=== PATIENT | male | born 1955 | race Caucasian/White ===

== ENCOUNTER 2020-07-11 07:43 | Day surgery (SDC) | payer MEDICARE ==
--- NOTE | 2020-07-10 16:08 | HP ---
HISTORY AND PHYSICAL DATE OF SURGERY: 07/11/2020 Leonard Silva is a 65-year-old gentleman seen with progressive right shoulder pain. We discussed options for treatment. He elected to proceed with arthroscopy. Consent was obtained. Medical clearance was provided. PAST MEDICAL HISTORY: Hypertension, gastroesophageal reflux disease, vee-flsxprh-gcugsutlu diabetes, hyperlipidemia. PAST SURGICAL HISTORY: Carpal tunnel release, eye surgery, wrist surgery. DAILY MEDICATIONS: Albuterol, omeprazole, metoprolol, losartan, glimepiride, metformin, simvastatin. ALLERGIES: IODINE and PENICILLIN. SOCIAL HISTORY: Denies tobacco use. PHYSICAL EVALUATION OF THE RIGHT SHOULDER: Flexion is 150, abduction 140, external rotation is 40 with pain and weakness. Tenderness along the anterior lateral acromion and rotator cuff insertion site. Impingement sign is positive at 90. Drop-arm sign positive. Distal neurovascular exam intact. RIGHT SHOULDER RADIOGRAPHS: Revealed a type 2 anterior acromion, acromioclavicular joint osteoarthritis and cystic changes of the greater tuberosity. Right shoulder MRI revealed a partial rotator cuff tendon tear, partial long head biceps tendon tear, acromioclavicular joint osteoarthritis, impingement. IMPRESSION: 1. Right shoulder impingement with rotator cuff tear. 2. Right shoulder acromioclavicular joint osteoarthritis. 3. Right shoulder partial long head biceps tendon tear. 4. Hypertension. 5. Hyperlipidemia. 6. Bje-nxbadhb-kfbrttwry diabetes. PLAN: Right shoulder arthroscopy, subacromial decompression, arthroscopic rotator cuff repair, biceps tenotomy, Ajit procedure and debridement. MMODL / IJN: [id number] /
[2020-07-11] MEDS ORDERED: LACTATED RINGERS 1,000 ML IV ONE ×2 (08:56→10:41)
[2020-07-11 09:00] LABS: Glucose,Whole Blood 151 mg/dL (75-99)
[2020-07-11] MEDS ORDERED: ONDANSETRON 4 MG/2 ML VIAL ONE (09:01)
[2020-07-11] MEDS ORDERED: MIDAZOLAM 2 MG/2 ML VIAL IVP ONE (09:07)
[2020-07-11] MEDS ORDERED: ONDANSETRON 4 MG/2 ML VIAL IVP ONE (09:12)
[2020-07-11] MEDS ORDERED: DEXAMETHASONE SOD PHOSPHATE 10 MG/ML 1 ML VIAL IV ONE (09:13)
[2020-07-11] MEDS ORDERED: PHENYLEPHRINE-0.9% NACL SYG 1 MG/10 ML SYRINGE ONE (10:02)
[2020-07-11] MEDS ORDERED: SUCCINYLCHOLINE CHLORIDE 100 MG/5 ML SYR IV ONE (10:02)
[2020-07-11] MEDS ORDERED: ROPIVACAINE 5 MG/ML 30 ML VIAL ONE (10:02)
[2020-07-11] MEDS ORDERED: DEXAMETHASONE SOD PHOSPHATE 10 MG/ML 1 ML VIAL ONE (10:02)
[2020-07-11] MEDS ORDERED: fentaNYL (PF) 50 MCG/ML 2 ML AMP ONE (10:02)
[2020-07-11] MEDS ORDERED: MIDAZOLAM 2 MG/2 ML VIAL ONE (10:02)
[2020-07-11] MEDS ORDERED: LIDOCAINE 1% INJ 10MG/ML (20 ML MDV) ONE (10:02)
[2020-07-11] MEDS ORDERED: PROPOFOL 10 MG/ML 20 ML VIAL IV ONE (10:02)
[2020-07-11 11:20] VITALS: TEMP 97
--- NOTE | 2020-07-11 11:20 | P.OP ---
Date of Procedure: 07/11/20 Preoperative Diagnosis: Right shoulder impingement Postoperative Diagnosis: 1. Right shoulder impingement 2. Right shoulder acromioclavicular joint osteoarthritis 3. Right shoulder glenohumeral joint osteoarthritis Procedure(s) Performed: 1. Right shoulder arthroscopic subacromial decompression 2. Right shoulder arthroscopic Ajit procedure 3. Right shoulder arthroscopic chondroplasty humeral head Anesthesia: GETA, regional (Interscalene block) Surgeon: Johnathon Dugan Estimated Blood Loss (ml): 8 Pathology: none sent Condition: stable Disposition: PACU Indications for Procedure: 65-year-old patient seen with progressive right shoulder pain. After treatment options were discussed, he elected to proceed with arthroscopy. Operative Findings: See description of procedure Description of Procedure: Patient underwent an interscalene block by department of anesthesia. The patient was then taken to the operative suite. The patient underwent a general anesthetic by the department of anesthesia. The patient was placed into a lateral position and secured. There was appropriate padding of the bony prominence. Right shoulder was then prepped and draped in normal sterile orthopedic fashion. We placed the extremity in 10 pounds of longitudinal traction. A posterior incision was now made for a posterior working portal site. The trocar and cannula were inserted into the glenohumeral joint. Arthroscopy was initiated. Spinal needle was now inserted anteriorly, to ascertain the anterior working portal site. An incision was now made in that area, a trocar was inserted followed by a probe. There were grade 4 chondromalacia changes of the humeral head with some osteochondral flap tears present along the periphery. There were grade 3, she changes of the glenoid fossa with no osteochondral tears present. There was some fraying of the anterior labrum. The biceps tendon was absent. I introduced a motorized shaver and performed a chondroplasty along the periphery debriding out the osteochondral flap tears and then I debrided the superficial tears of the labrum. The residual labrum was stable. I again noted a vast area of grade 4 chondromalacia of the humeral head. Instruments were now removed from glenohumeral joint. Utilizing the posterior working portal site, the trocar and cannula were inserted into the subacromial space. Arthroscopy initiated. I made an incision 2 fingerbreadths lateral to the acromion. I introduced my trocar followed by my ArthroCare ablator. I now began ablating thick subacromial bursal tissue, which exposed the undersurface of the anterior acromion. There was diminished subacromial space. There was a very prominent anterior acromion. A motorized bur was introduced and a subacromial decompression was performed. I also excised some osteophytes off the inferior aspect of the distal clavicle. The AC joint was visualized and noted to be fairly arthritic. The motorized bur was introduced in the anterior portal site and a Ajit procedure was performed without difficulty, decompressing the AC joint nicely. I turned my attention to the rotator cuff. There was some superficial tearing long distal supraspinatus area. A motorize shaver was utilized to debride that out. I probed the area thoroughly and did not note any full-thickness perforation. The remainder of the rotator cuff tendon was probed and again no perforation or tear was noted. I injected 1 mL Renyte intra-articular. Instruments now removed from the portal sites. All portal sites were approximated with nylon suture. Sterile dressings were applied followed by a shoulder sling. Luis STARR assisted in this case. The patient was awakened, transferred to a bed, and taken to recovery in stable condition.
[2020-07-11] MEDS ORDERED: HYDROmorphone 0.5 MG/0.5 ML SYRINGE IVP ONE (11:30)
--- NOTE | 2020-07-11 11:30 | P.ANPRN ---
Procedure Note - Anesthesia - Nerve Block Performed Right Interscalene Single Time Out Performed: Yes Date of Procedure: 07/11/20 Procedure Start Time: 09:00 Procedure Stop Time: :10 Location of Patient: PreOp Indication: Acute Post-Operative Pain, Requested by Surgeon Sedation Type: Sedate with meaningful contact maintained Preparation: Sterile Prep Position: Supine Needle Types: Pajunk Needle Gauge: 21 Ultrasound used to visualize needle placement: Yes Ultrasound used to observe medication spread: Yes Blood Aspirated: No Resistance on Injection: Normal Image Stored and Saved: Yes Events: Uneventful and Well Tolerated (ropi .5% 20cc plus dexamethasone 4mg)
[2020-07-11 12:33] VITALS: RESP 18
[2020-07-11 12:46] VITALS: BP 136/82; PULSE 92
== END 2020-07-11 13:04 | disposition home or self-care (01) ==
LOC: OR 07:43
PROVIDERS: ATTEND Orthopaedic Surgery
DX: M25.811 Other specified joint disorders, right shoulder (principal); M19.011 Primary osteoarthritis, right shoulder; M94.211 Chondromalacia, right shoulder; M25.711 Osteophyte, right shoulder; I10 Essential (primary) hypertension; K21.9 Gastro-esophageal reflux disease without esophagitis; E11.9 Type 2 diabetes mellitus without complications; I25.10 Atherosclerotic heart disease of native coronary artery without angina pectoris; E78.5 Hyperlipidemia, unspecified; Z98.890 Other specified postprocedural states; Z79.84 Long term (current) use of oral hypoglycemic drugs; Z79.899 Other long term (current) drug therapy; Z79.51 Long term (current) use of inhaled steroids; Z79.1 Long term (current) use of non-steroidal anti-inflammatories (NSAID); Z88.0 Allergy status to penicillin; Z91.048 Other nonmedicinal substance allergy status; Z91.041 Radiographic dye allergy status
CPT/HCPCS: 64415; 76942; 29823; 29824; J2250; J1100; J0690; J2405; J2001; J3010; J2795; J2370; J0330; J2704; J1170

== ENCOUNTER → 2021-04-05 | Outpatient (CLI) | payer MEDICARE | END | disposition home or self-care (01) ==

== ENCOUNTER → 2021-10-07 | Outpatient (CLI) | payer MEDICARE ==
[~2021-10-07] MED LIST: IODINE/POTASS IOD (LUGOLS) BOTTLE TOPICAL ONE
--- NOTE | 2021-10-08 07:02 | NM ---
EXAMINATION TYPE: NM DatScan Brain SPECT DATE OF EXAM: 10/07/2021 COMPARISON: NONE HISTORY: Tremors and memory loss. Abnormal gait. TECHNIQUE: 10 drops of Lugol's solution was administered 1 hour prior to injection as a thyroid bloc carl agent. After the administration of 4.46 mCi I-123 Ioflupane DaTscan. Images obtained 3 hours p ost injection. SPECT images of the brain were acquired with axial and coronal reconstructions. FINDINGS: The DaTSCAN demonstrates balanced striatal loss to the caudate and putamina nucleii in the striata. This appearance is consistent with the loss of the pre-synaptic dopaminergic terminals. IMPRESSION: This abnormal appearance is supportive of a clinical diagnosis of DLB, idiopathic PD, Parkinson?s dementia complex, or PS.
== END | disposition home or self-care (01) ==
LOC: RADNMMAIN 11:08
PROVIDERS: ATTEND Psychiatry & Neurology Neurology
DX: G20 Parkinson's disease (principal)
CPT/HCPCS: 78803; A9584

== ENCOUNTER → 2022-10-08 | Outpatient (CLI) | payer MEDICARE ==
--- NOTE | 2022-10-12 08:40 | MR ---
EXAMINATION TYPE: MR shoulder LT wo/w con DATE OF EXAM: 10/08/2022 COMPARISON: NONE HISTORY: 67-year-old male M25.512, left shoulder pain, M12.812. Technique: Multiplanar, multisequence images of the left shoulder were obtained before and after admi nistration of 9 mL intravenous Gadavist gadolinium contrast. FINDINGS: AC joint is intact with mild joint effusion. No significant spurring is seen. There is a large joint effusion contiguous with the subacromial/subdeltoid bursa. Tracks from previous anchors within the humeral head but with a retracted re-tear of the entire supra spinatus and infraspinatus tendons. Stump is seen at the level of the glenoid retracted by up to 5 cm . Minimal fatty streaks are present in both supraspinatus and infraspinatus muscle bellies. There is heterogeneity of the subscapularis tendon with tear of the superior third fibers of the subs capularis. No significant atrophy of the subscapularis muscle belly. Nonvisualization of the intracapsular portion of the long biceps tendon. The fibers are visualized al emma the bicipital groove. There is a suture anchor noted along the anterior aspect of the humeral hea d, possible prior surgery with tenotomy and tenodesis within the bicipital groove. There are areas of moderate and severe thinning of humeral head articular cartilage. Moderate thinnin g along the superior aspect of the glenoid articular cartilage. Marginal spurring is present. Superio r subluxation of the humeral head compatible with joint instability. There is synovial enhancement suggesting some underlying synovitis. No other suspicious enhancement i s seen. Diffusely degenerative glenoid labrum. Heterogeneous marrow change compatible with red marrow hyperplasia. This can be seen in setting of an emia, obesity, smoking, and chronic disease. No suspicious bone marrow replacement. IMPRESSION: 1. Previous cuff surgery with findings of massive rotator cuff re-tear involving the entire supraspin atus and infraspinatus tendons. The stump is retracted by 5 cm to the level of the glenoid. There are minimal fatty streaks that have developed within both muscle bellies. 2. Secondary glenohumeral joint instability and underlying moderate glenohumeral joint OA. 3. Large joint effusion contiguous with the bursa and mild to moderate chronic synovitis. 4. The subscapularis tendon shows tear of the superior third fibers. 5. The intracapsular portion of the long head biceps tendon is not visualized. There may have been pr evious surgery with tenotomy and tenodesis in the bicipital groove. Clinically correlate.
== END | disposition home or self-care (01) ==
LOC: RADMRIMAIN 10:59
PROVIDERS: ATTEND Family Medicine
DX: M75.122 Complete rotator cuff tear or rupture of left shoulder, not specified as traumatic (principal); M19.012 Primary osteoarthritis, left shoulder; M25.412 Effusion, left shoulder; M65.812 Other synovitis and tenosynovitis, left shoulder
CPT/HCPCS: 73223; A9585

== ENCOUNTER → 2023-05-25 | Outpatient (CLI) | payer MEDICARE | END | disposition home or self-care (01) | LOC: LABWHC1 14:42 | PROVIDERS: ATTEND Internal Medicine Cardiovascular Disease | DX: R00.2 Palpitations (principal) | CPT/HCPCS: 36415; 84443 ==

== ENCOUNTER → 2023-09-06 | Outpatient (CLI) | payer MEDICARE ==
[2023-09-06 18:56] LABS: HCT 45.1 % (39.6-50.0); HGB 14.8 g/dL (13.0-17.0); MCH 27.6 pg (27.0-32.0); MCHC 32.8 g/dL (32.0-37.0); MCV 84.1 FL (80.0-97.0); Mean Platelet Volume 10.1 FL (9.5-12.2); NRBC Per 100 WBC 0 X 10*3/uL (0.00-0.01); Platelet Count 260 X 10*3/uL (140-440); RBC 5.36 X 10*6/uL (4.40-5.60); RDW 12.7 % (11.5-14.5); WBC 7.34 X 10*3/uL (4.50-10.00)
[2023-09-06 19:02] LABS: Blood Urea Nitrogen 13.6 mg/dL (9.0-27.0); Carbon Dioxide 26.7 mmol/L (21.6-31.8); Chloride 90 mmol/L (96-109); Potassium 3.6 mmol/L (3.5-5.5); Sodium 132 mmol/L (135-145)
== END | disposition home or self-care (01) ==
LOC: LABPAT 15:09
PROVIDERS: ATTEND Internal Medicine Clinical Cardiac Electrophysiology
DX: Z01.812 Encounter for preprocedural laboratory examination (principal); I47.10 Supraventricular tachycardia, unspecified
CPT/HCPCS: 80051; 82565; 84520; 85027

== ENCOUNTER 2023-09-14 05:44 | Day surgery (SDC) | payer MEDICARE ==
[2023-09-14] MEDS ORDERED: SODIUM CHLORIDE 0.9% 1,000 ML IV SCH (05:58)
[2023-09-14 06:58] LABS: Glucose,Whole Blood 168 mg/dL (70-110)
[2023-09-14 07:05] LABS: ALT 16 U/L (4-49); AST 24 U/L (17-59); African American GFR (CKD) 87 (>60 ml/min/1.73 sqM); Albumin 4.7 g/dL (3.5-5.0); Alkaline Phosphatase 107 U/L (38-126); Anion Gap 13 mmol/L; Blood Urea Nitrogen 16 mg/dL (9-20); Calcium 10.1 mg/dL (8.4-10.2); Carbon Dioxide 31 mmol/L (22-30); Chloride 90 mmol/L (98-107); Glucose 175 mg/dL (74-99); Non-African American GFR(CKD) 75 (>60 ml/min/1.73 sqM); Potassium 3.3 mmol/L (3.5-5.1); Sodium 134 mmol/L (137-145); Total Bilirubin 0.7 mg/dL (0.2-1.3); Total Protein 7.6 g/dL (6.3-8.2)
[2023-09-14 07:06] VITALS: RESP 18; TEMP 98.5
[2023-09-14] MEDS ORDERED: HYDROmorphone (PF) 1 MG/ML ONE (07:25)
[2023-09-14] MEDS ORDERED: MIDAZOLAM 2 MG/2 ML VIAL ONE (07:25)
[2023-09-14] MEDS ORDERED: fentaNYL (PF) 50 MCG/ML 2 ML AMP ONE (07:25)
[2023-09-14] MEDS ORDERED: ONDANSETRON 4 MG/2 ML VIAL ONE (07:25)
[2023-09-14] MEDS ORDERED: diphenhydrAMINE 50 MG/ML 1 ML VIAL ONE (07:25)
[2023-09-14] MEDS ORDERED: ISOPROTERENOL 250 MCG/1.25 ML SYR IV ONE (07:25)
[2023-09-14] MEDS ORDERED: LIDOCAINE 1% INJ 10MG/ML (20 ML MDV) ONE ×2 (07:37→09:44)
[2023-09-14] MEDS ORDERED: LIDOCAINE 1% INJ 10MG/ML (20 ML MDV) SQ ONE (08:10)
[2023-09-14] MEDS ORDERED: CLINDAMYCIN 600 MG in DEXTROSE 5% IN WATER 50 ML IVPB STA ×2 (09:39)
--- NOTE | 2023-09-14 10:08 | P.EPPROC ---
- EP Procedure Note Electrophysiology Procedure Note: Diagnosis Recurrent palpitations or/SVT associated with jaw discomfort, symptomatic Final diagnosis Normal sinus node function Normal AV node function No evidence for slow pathway conduction, no evidence for accessory pathway conduction Inducible nonsustained atrial fibrillation Plan Continue current medications Loop implantation to document A. fib burden and guide further therapy Details Patient was brought to the EP lab in a fasting state. Written informed consent was obtained prior to the procedure. The left groin was prepped and draped as a protocol and venous sheaths were placed in the left groin. Via these diagnostic catheters were positioned in the high right atrium, His bundle area, right ventricle and coronary sinus. Sinus cycle inflammatory 66 ms, NM interval 127 ms, QRS 144 ms right bundle branch block pattern. QT interval 360 ms AH 46 and HV 48 ms Sinus node recovery times at 504 100 ms were 839 and 880 ms. Corrected sinus node recovery times abnormal AV node Wenckebach block 260 ms VA Wenckebach block 310 ms Absence of any delta waves. No evidence for slow pathway conduction Retrograde conduction is midline and decremental Ventricular ERP 500\220 ms Parahisian pacing following Isuprel revealed jason response Atrial and ventricular extra stimulation performed. No SVT induced. Nonsustained brief atrial fibrillation induced I does Isuprel used Atrial extra stimulation, coronary sinus extra stimulation and ventricular extra stimulation performed State pacing performed from all sites Inducible nonsustained atrial fibrillation No evidence for AV jason reentry or AVRT or any clear-cut atrial tachycardia or atrial flutter Venous sheaths were removed at the end of the procedure. Hemostasis achieved with Vascade closure device Consent obtained from patient and his regarding implantation of loop monitor guide further therapy
--- NOTE | 2023-09-14 10:11 | P.HPCAR ---
History of Present Illness This is Dr. Sanchez dictating an H/P on this patient The patient was interviewed and examined IMPRESSION / ASSESSMENT: Recurrent palpitations for the last 2 years associated with lightheadedness, near syncope and on 2 occasions loss of consciousness Associated jaw discomfort with palpitations Normal stress test Normal 2-D echo Failed beta blockers Normal TSH PLAN: Proceed with a diagnostic EP study and possible radiofrequency ablation HPI Patient has recurrent episodes of palpitations associated with jaw discomfort and presyncopal he is syncope We have documented episodes of SVT on the monitor Most episodes showed a rapid regular ventricular response, 1 episode shows irregular ventricular response with RVR He denies the fever chills loss of consciousness last one to 2 weeks His stress test was normal ROS: No fever chills or rigors, no cough, phlegm or expectoration, no nausea, vomiting or diarrhea, no hematuria, dysuria, no musculoskeletal complaints, no strokes or seizures, no skin lesions. EXAMINATION: Pulse rate 105 beats a minute, respirations 18, blood pressure 135%. His mercury Afebrile Pulse ox normal Breath sounds are clear no rhonchi no crackles Heart sounds and S2 are normal no murmurs or gallop 9 abdomen is soft Extremities are warm no edema REVIEW OF LABS, ECG & MEDICAL DATA Sodium 134, potassium 3.3 BUN 16 creatinine 1.0 Liver function normal Physical Exam Vitals: Vital Signs Temp Pulse Resp BP Pulse Ox 09/14/23 06:53 98.5 F 105 H 18 135/78 97 Intake and Output 09/13/23 09/14/23 09/14/23 22:59 06:59 14:59 Intake Total 100 0 Balance 100 0 Intake: IV 100 0 Other: Weight 90 kg Past Medical History Past Medical History: Diabetes Mellitus, GERD/Reflux, Hyperlipidemia, Hypertension, Osteoarthritis (OA) Additional Past Medical History / Comment(s): SEASONAL ALLERGIES. KIDNEY STON ES.parkinson's, "irregualr heart beat" balance issues when heart rate acts up, fatigue,. See Dr Sanchez's H & P History of Any Multi-Drug Resistant Organisms: None Reported Past Surgical History: Orthopedic Surgery, Tonsillectomy Additional Past Surgical History / Comment(s): CHRIS CARPAL TUNNEL. BILATERAL LASIK. SINUS SURGERY. 2 surgeries each on chris shoulders Past Anesthesia/Blood Transfusion Reactions: No Reported Reaction, Motion Sickness Smoking Status: Former smoker - Past Family History Brother(s) Family Medical History: Deep Vein Thrombosis (DVT) Physical Examination Vital Signs Temp Pulse Resp BP Pulse Ox 09/14/23 06:53 98.5 F 105 H 18 135/78 97 Intake and Output 09/13/23 09/14/23 09/14/23 22:59 06:59 14:59 Intake Total 100 0 Balance 100 0 Intake: IV 100 0 Other: Weight 90 kg Results 09/14/23 06:20 Cardiac Enzymes 09/14/23 Range/Units 06:20 AST 24 (17-59) U/L Comprehensive Metabolic Panel 09/14/23 Range/Units 06:20 Sodium 134 L (137-145) mmol/L Potassium 3.3 L (3.5-5.1) mmol/L Chloride 90 L (98-107) mmol/L Carbon Dioxide 31 H (22-30) mmol/L BUN 16 (9-20) mg/dL Creatinine 1.01 (0.66-1.25) mg/dL Glucose 175 H (74-99) mg/dL Calcium 10.1 (8.4-10.2) mg/dL AST 24 (17-59) U/L ALT 16 (4-49) U/L Alkaline Phosphatase 107 (38-126) U/L Total Protein 7.6 (6.3-8.2) g/dL Albumin 4.7 (3.5-5.0) g/dL Current Medications Generic Name Dose Route Start Last Admin Trade Name Freq PRN Reason Stop Dose Admin Sodium Chloride 1,000 mls @ 50 mls/hr 09/14/23 05:58 09/14/23 06:54 Saline 0.9% IV 10/14/23 05:59 100 mls .Q20H GRIS Administration Clindamycin Phosphate 600 mg/ 54 mls @ 50 mls/hr 09/14/23 09:39 Dextrose/Water IVPB 09/14/23 10:43 ONCE STA Protocol Intake and Output 09/13/23 09/14/23 09/14/23 22:59 06:59 14:59 Intake Total 100 0 Balance 100 0 Intake: IV 100 0 Other: Weight 90 kg 09/14/23 06:20
[2023-09-14] MEDS ORDERED: ACETAMINOPHEN TAB 325 MG TAB PO PRN (10:24)
[2023-09-14] MEDS ORDERED: ACETAMINOPHEN IV (For NPO) 1,000 MG in EMPTY BAG 1 BAG IVPB ONE (10:24)
[2023-09-14] MEDS ORDERED: ALBUTEROL HFA INHALER INHALATION PRN (10:27)
[2023-09-14] MEDS ORDERED: NON FORMULARY DRUG (Tadalafil [Cialis] 10 MG Tablet) PO PRN (10:27)
--- NOTE | 2023-09-14 10:33 | P.PRLE ---
RE: Leonard Silva Dear Eugenia Valle underwent a diagnostic EP study which did not show any evidence for SVT He had nonsustained episodes of atrial fibrillation only Therefore loop monitor was implanted to assess A. fib burden and guide future therapy Thank you for entrusting me with the care of the patient Warm regards Sincerely Dewayne Sanchez
[2023-09-14] MEDS ORDERED: METOPROLOL SUCCINATE (ER) 50 MG TAB.ER.24H PO STA (10:49)
[2023-09-14] MEDS ORDERED: CARBIDOPA-LEVODOPA 25-100 MG 1 EACH TAB PO SCH (13:00)
[2023-09-14 15:46] VITALS: BP 120/80; PULSE 72
[2023-09-14] MEDS ORDERED: BACLOFEN 10 MG TAB PO SCH (16:00)
[2023-09-14] MEDS ORDERED: NON FORMULARY DRUG (Repaglinide [Prandin] 2 MG Tablet) PO SCH (16:00)
[2023-09-14] MEDS ORDERED: MELOXICAM 7.5 MG TAB PO SCH (21:00)
[2023-09-14] MEDS ORDERED: VENLAFAXINE HCL 75 MG TAB PO SCH (21:00)
[2023-09-14] MEDS ORDERED: metFORMIN 500 MG TAB PO SCH (21:00)
[2023-09-14] MEDS ORDERED: NON FORMULARY DRUG (Simvastatin [Simvastatin] 40 MG Tablet) PO SCH (21:00)
[2023-09-14] MEDS ORDERED: GLIMEPIRIDE 4 MG TAB PO SCH (21:00)
[2023-09-14] MEDS ORDERED: BECLOMETHASONE DIP INHALATION SCH (21:00)
[2023-09-14] MEDS ORDERED: IPRATROPIUM BROMIDE 0.06% NASAL SPRAY (15 ML) NASAL SCH (21:00)
[2023-09-15] MEDS ORDERED: METOPROLOL SUCCINATE (ER) 25 MG TAB.ER.24H PO SCH (09:00)
[2023-09-15] MEDS ORDERED: NON FORMULARY DRUG (Losartan/Hydrochlorothiazide [Hyzaar 100-25 Tablet] 1 EACH Tablet) PO SCH (09:00)
[2023-09-15] MEDS ORDERED: MONTELUKAST 10 MG TAB PO SCH (09:00)
[2023-09-15] MEDS ORDERED: amLODIPine 10 MG TAB PO SCH (09:00)
[2023-09-15] MEDS ORDERED: NON FORMULARY DRUG (Potassium Chloride [Potassium Chloride Er] 10 MEQ Capsule.Er) PO SCH (09:00)
[2023-09-15] MEDS ORDERED: NON FORMULARY DRUG (Aspirin [Adult Low Dose Aspirin Ec] 81 MG Tablet.Dr) PO SCH (09:00)
[2023-09-15] MEDS ORDERED: NON FORMULARY DRUG (Omeprazole [Omeprazole] 40 MG Capsule.Dr) PO SCH (09:00)
--- NOTE | 2023-09-16 10:40 | P.EPPROC ---
- EP Procedure Note Electrophysiology Procedure Note: Loop monitor implant Primary physicians: Candy Cutter Hand: Dr. Toledo Indication: Recurrent palpitations, inducible short paroxysms of atrial fibrillation, likely atrial tachycardia History of SVT, carotid massage sensitive At EP study there was no evidence for slow pathway conduction AV node reentry for accessory pathway conduction or AVRT Inducible short bursts of atrial fibrillation Loop implant to assess for atrial tachycardia burden and atrial fibrillation blood to guide management in the future Patient was brought to the EP lab in a fasting state. Written informed consent was obtained prior to the procedure. The left pectoral area was prepped and draped per protocol. Intravenous antibiotic was administered preoperatively. A subcutaneous Loop monitor was implanted successfully and the wound was closed per protocol. The device was programmed to detect significant juan carlos- arrhythmic and tachy-arrhythmic events, per protocol. Device and programming details: Tachycardia protocol
[2023-09-17] MEDS ORDERED: NON FORMULARY DRUG (Semaglutide [Ozempic] 1 MG/0.75 ML Pen.Injctr) SQ SCH (10:27)
== END 2023-09-14 15:45 | disposition home or self-care (01) ==
LOC: CATHEP 05:44
PROVIDERS: ATTEND Internal Medicine Clinical Cardiac Electrophysiology
DX: I47.10 Supraventricular tachycardia, unspecified (principal); I48.91 Unspecified atrial fibrillation; E11.9 Type 2 diabetes mellitus without complications; K21.9 Gastro-esophageal reflux disease without esophagitis; E78.5 Hyperlipidemia, unspecified; I10 Essential (primary) hypertension; M19.90 Unspecified osteoarthritis, unspecified site; J30.2 Other seasonal allergic rhinitis; G83.9 Paralytic syndrome, unspecified; Z87.442 Personal history of urinary calculi; Z98.890 Other specified postprocedural states; Z87.891 Personal history of nicotine dependence; Z79.82 Long term (current) use of aspirin; Z79.51 Long term (current) use of inhaled steroids; Z79.899 Other long term (current) drug therapy; Z88.0 Allergy status to penicillin; Z91.041 Radiographic dye allergy status
CPT/HCPCS: 93623; 93621; 93620; 33285; 86900; 86901; 80053; 86850; C1894; C1769; C1760; C1764; J2250; J1200; J2405; J2001; J3010; J1170; J0736